=== PATIENT | female | born 1970 | race African-American/Black ===

== ENCOUNTER 2018-04-12 18:05 | Emergency (ER) | payer MEDICARE, MEDICAID ==
[2018-04-12 18:40] LABS: Clarity Slightly Cloudy (Clear); Leukocyte Negative (Negative); pH, Urine 5.5 (5.0-9.0)
[2018-04-12 18:41] LABS: Bilirubin Negative (Negative); Blood, Urine Negative (Negative); Glucose, Urine (Dipstick) Negative (Negative); Nitrite Negative (Negative); Protein, Urine (Dipstick) Negative (Neg-Trace); Urobilinogen 0.2 mg/dL (0.2-1.0)
[2018-04-15 19:44] LABS: Chlamydia by PCR Not Detected (NotDetected); GC by PCR Not Detected (NotDetected)
== END 2018-04-12 19:04 | disposition home or self-care (01) ==
LOC: BURERS 18:05
DX: N76.0 Acute vaginitis (principal); B37.3 Candidiasis of vulva and vagina; K58.9 Irritable bowel syndrome, unspecified; K21.9 Gastro-esophageal reflux disease without esophagitis; J45.909 Unspecified asthma, uncomplicated; F17.210 Nicotine dependence, cigarettes, uncomplicated; F41.9 Anxiety disorder, unspecified; F32.9 Major depressive disorder, single episode, unspecified; Z79.899 Other long term (current) drug therapy; Z79.891 Long term (current) use of opiate analgesic
CPT/HCPCS: 81003; 87480; 87491; 87510; 87591; 87660; 99283